=== PATIENT | male | born 1935 ===

== ENCOUNTER 2020-07-04 15:47 | Outpatient (REF) | payer MEDICAID, SELFPAY ==
[2020-07-04 18:39] LABS: Influenza A PCR NEGATIVE (Negative); Influenza B PCR NEGATIVE (Negative); Resp Syncy Virus RNA Qual PCR NEGATIVE (Negative); SARS COV2 PCR INHOUSE NEGATIVE (Negative)
== END 2020-07-04 15:48 | disposition home or self-care (01) ==
LOC: HO.LAB 15:47
PROVIDERS: Visit Provider Internal Medicine
DX: Z20.822 Contact with and (suspected) exposure to COVID-19 (principal)
CPT/HCPCS: 0241U; 36415

== ENCOUNTER 2021-03-02 12:08 | Outpatient (REF) | payer MEDICAID, SELFPAY ==
[2021-03-02 13:32] LABS: Influenza A PCR NEGATIVE (Negative); Influenza B PCR NEGATIVE (Negative); Resp Syncy Virus RNA Qual PCR NEGATIVE (Negative); SARS COV2 PCR INHOUSE NEGATIVE (Negative)
== END 2021-03-02 12:09 | disposition home or self-care (01) ==
LOC: HO.ED 12:08
PROVIDERS: Visit Provider Internal Medicine
DX: Z20.822 Contact with and (suspected) exposure to COVID-19 (principal)
CPT/HCPCS: 0241U; 36415

== ENCOUNTER 2023-06-27 17:12 | Emergency (ER) | payer MEDICAID, SELFPAY ==
--- NOTE | ~2023-06-27 | XR_ITS ---
EXAMINATION: XR HIP, LEFT CLINICAL INFORMATION: Left hip pain. COMPARISON: None available. TECHNIQUE: Two views of the left hip. FINDINGS: No fracture or subluxation. Eewe-my-qhjxpffz degenerative changes in the hips with joint space narrowing, subcortical sclerosis and spurring. Symmetric SI joints. Pelvic ring and pubic symphysis are maintained. Pelvic phleboliths. Moderate atherosclerotic disease. No significant soft tissue abnormality. XR/XR hip LT w PEL1V IMPRESSION: No acute fracture or malalignment. [id number]-vk-[id number] degenerative osteoarthritis of the hips.
--- NOTE | ~2023-06-27 | MR_ITS ---
EXAMINATION: MR KNEE WITHOUT CONTRAST, LEFT CLINICAL INFORMATION: Knee pain. Evaluate meniscus tear. COMPARISON: Radiographs of left knee from 06/27/2023. TECHNIQUE: MRI of the knee without contrast was performed using routine sequences on a high-field scanner. This is an emergency/stat examination. FINDINGS: MENISCI: Medial Meniscus: There is altered signal of mucoid degeneration in the posterior horn and complex tear of the posterior horn. Findings include an oblique tear of the inner third of the posterior horn. Also, a horizontal tear extends from eeiyr-ma-gewts third and contacts the inferior meniscal surface (images 16-19, series 4). There is complex appearance of the tear at the meniscal root. On the sagittal images, this has the appearance of a short segment longitudinal tear whereas on coronal images this is predominantly a radial pattern of tearing with high-grade disruption of fibers at the root attachment. The body of the medial meniscus is extruded by nearly 0.3 cm. The free edge of the meniscal body is slightly truncated. Lateral Meniscus: Intact. No evidence of tear, discoid meniscus or parameniscal cyst. LIGAMENTS: Cruciate: Anterior cruciate ligament is normal. There is mild signal heterogeneity from mucoid degeneration as well as very small interstitial tear in the posterior cruciate ligament. Collateral: At the medial knee, the tibial collateral ligament is intact. At the lateral knee, the iliotibial band, fibular collateral ligament, biceps femoris tendon and popliteus tendon are intact. EXTENSOR MECHANISM: Mild tendinopathy of the distal quadriceps. There is a small area of T2 signal hyperintensity, likely secondary to chronic tendon degeneration, in region of junction of the vastus lateralis component with the remainder of the quadriceps at upper pole of patella. Patellar tendon is normal. ARTICULAR CARTILAGE/BONE: Patellofemoral Compartment: Patella is properly positioned within the trochlear groove. There is moderate and high-grade chondral loss of the medial patellar facet and a deep oblique fissure is present in articular cartilage (along with small subchondral cyst) in region of median ridge. Minimal marginal osteophyte formation of the patella. Medial Compartment: Irregular thinning and deep fissuring of articular cartilage of the weightbearing and flexion zone of the medial femoral condyle and medial tibial plateau with subchondral bone marrow edema. A somewhat serpiginous and horizontal linear fracture line is seen within trabecular bone subjacent to the medial tibial plateau (for example, images 14-16, series 5; sagittal images 19-21, series 4). The bone marrow edema of the proximal tibia is worst around the region of the trabecular fracture. Also, areas of edema-like signal change are present in the medial femoral condyle around the subchondral cysts. Lateral Compartment: Unremarkable. JOINT FLUID AND BURSAE: Small joint effusion. No Lord's cyst. OTHER FINDINGS: There is soft tissue edema around the knee. Also, edema is seen within the popliteus muscle. Although this could be reactive to the tibia stress fracture, mild strain of the popliteus muscle is included in the differential. Mild edema also observed in the tibialis anterior muscle at its tibial attachment. MR/MR knee LT wo con IMPRESSION: * There is a complex tear of the posterior horn the medial meniscus including high-grade tearing through the meniscal root and associated extrusion of the meniscal body. * Irregular chondral loss with irregular thinning and fissuring of the articular cartilage of the femoral condyle and medial tibial plateau with subchondral marrow edema. Tibial bone marrow edema is predominantly observed around a stress fracture subjacent to the medial tibial plateau (not involving the articular surface of the plateau). * Small joint effusion. * Mild osteoarthritis of the patellofemoral joint. Findings include high-grade chondral loss and deep chondral fissure at the medial patellar facet. * Mild mucoid degeneration and apparent small interstitial tear of the posterior cruciate ligament.
--- NOTE | ~2023-06-27 | XR_ITS ---
EXAMINATION: XR KNEE, LEFT CLINICAL INFORMATION: Knee pain. COMPARISON: None available. TECHNIQUE: Four views of the left knee. FINDINGS: No fracture or subluxation. Mild joint space narrowing of the medial and patellofemoral compartments. No osseous erosions. Small joint effusion. Surgical clips projecting over the medial soft tissues of the knee. Moderate atherosclerotic disease. XR/XR knee LT 4V IMPRESSION: 1. No acute fracture or malalignment. 2. Mild degenerative osteoarthritis of the medial and patellofemoral compartments. 3. Small joint effusion.
--- NOTE | ~2023-06-27 | XR_ITS ---
EXAMINATION: XR LUMBOSACRAL SPINE CLINICAL INFORMATION: Low back pain. COMPARISON: None available. TECHNIQUE: Three views of the lumbosacral spine. FINDINGS: No evidence of acute compression deformity or subluxation. Severe intervertebral disc height loss at L5-S1. Large multilevel anterior osteophytes. Moderate facet arthropathy at L5-S1 with some degree of neural foraminal encroachment and central canal stenosis, suboptimally assessed by radiograph. Symmetric SI joints. No significant paraspinal soft tissue abnormality. XR/XR lumbar spine 2-3V IMPRESSION: 1. No acute compression deformity or malalignment. 2. Severe lumbar spondylosis at L5-S1. 3. Large multilevel anterior osteophytes.
[2023-06-27 18:05] VITALS: BP 179/88; PULSE 82; RESP 16; TEMP 36.6; O2SAT 99; BMI 25.1
--- NOTE | 2023-06-27 18:22 | ED.GENADULT ---
HPI - General Adult General Chief complaint: General Medical Stated complaint: left knee pain Time Seen by Provider: 06/27/23 17:24 Source: patient Mode of arrival: ambulatory Limitations: no limitations History of Present Illness HPI narrative: 87 yold male with pmh of DM, heart BYpass and chronic knee pain presents to the ED for worsening left knee pain. Patient states no recent trauma. Patient pain when bearing weight on knee. patient denies any redness, leg swelling, or calf pain. Patient also states low back pain with left hip pain. patient denies any recent long travel or recent surgery. Patient not able to walk due to knee pain. not able to bear weight. Related Data Home Medications Medication Instructions Recorded Confirmed aspirin 81 mg tablet,delayed 81 mg PO DAILY 07/02/23 release atorvastatin 10 mg tablet 10 mg PO DAILY 07/02/23 dorzolamide 22.3 mg-timolol 6.8 ophthalmic (eye) 07/02/23 mg/mL eye drops glipizide 10 mg tablet, extended 10 mg PO DAILY 07/02/23 release 24 hr insulin NPH isoph U-100 human 100 unit subcut 07/02/23 unit/mL subcutaneous suspension (Humulin N NPH U-100 Insulin (isophane susp)) isosorbide mononitrate 60 mg 60 mg PO BID 07/02/23 tablet,extended release 24 hr metoprolol tartrate 50 mg tablet 50 mg PO BID 07/02/23 pantoprazole 40 mg tablet,delayed 40 mg PO DAILY 07/02/23 release valsartan 80 mg tablet 80 mg PO DAILY 07/02/23 Allergies Allergy/AdvReac Type Severity Reaction Status Date / Time Sulfa (Sulfonamide Allergy Severe Anaphylaxis Verified 07/02/23 11:24 Antibiotics) Review of Systems Review of Systems: low back pain, hip, and left knee pain Yes all other systems are reviewed and are negative [facility] Past Medical History Surgical History (Updated 07/02/23 @ 11:29 by Dari Sawant MA) H/O heart bypass surgery (~2011) Social History Social History (Updated 07/02/23 @ 11:29 by Dari Sawant MA) Household Members: Family Housing: House Alcohol intake: never Patient Tobacco Use Status: Never used Tobacco Physical Exam ED Vital Signs: Vital Signs - 24 hr 06/27/23 18:05 Temperature 97.8 F Pulse Rate 82 Respiratory Rate 16 Blood Pressure 179/88 H Pulse Oximetry 99 Oxygen Delivery Method Room Air BMI result Body Mass Index 25.1 Const General: cooperative, healthy appearing, comfortable, no acute distress and well developed Orientation/consciousness: oriented to person, oriented to place, oriented to time and patient oriented x3 [facility] Head: Yes normal to inspection, Yes No palpable skull fracture present, Yes normocephalic and Yes atraumatic Eyes General: appearance normal, both eyes and all related structures Neck Neck: Yes normal visual inspection, Yes full ROM, Yes no lymphadenopathy, Yes no meningeal signs, Yes trachea midline, Yes supple, No anterior neck swelling and No tender Chest Chest palpation & inspection: normal inspection of the chest and normal palpation of entire chest wall Resp Effort & Inspection: normal respiratory effort and able to speak in complete sentences Auscultation: clear to auscultation bilaterally Cardio Jugular venous distension: no JVD Heart sounds: S1 normal heart sound present and S2 normal heart sound present GI Inspection: Yes normal to inspection Palpation (GI): Soft to palpation, not firm, nontender, no guarding and not rigid General: No CVA tenderness and No no CVA tenderness Back/Spine/Pelvis Back: No no CVA tenderness, No CVA tenderness and back tenderness (lumbar spine tenderness) Skin General skin exam: no rashes or lesions noted, elasticity normal and turgor normal Neuro General: oriented to person, oriented to place, oriented to time, patient oriented x3, gait normal, tone normal, moves all extremities, Normal light touch and pain sensation, no meningeal signs, no focal motor deficits, CN's II-XI intact bilaterally and normal sensation to monofilament Extrem General: Yes normal to inspection and Yes full ROM Upper/lower leg/hip images: 1. Tenderness on palpation. Negative for fracture. Complete range of motion of hip. Mom pulse intact. Motor/neuro/vascular exam intact Knee images: 1. Positive for lateral knee tenderness on palpation. Negative for crepitus, ecchymosis, erythema, or swelling. Patient has complete range of motion of knee. Popliteal pulses intact. Pedal pulses intact. Motor/neuro/vascular exam intact. Psych Appearance: grossly normal, well kempt and not disheveled Medical Decision Making Medical Decision Making MDM Narrative: 87-year-old male history of diabetes, cardiac bypass surgery presents to ED for worsening left knee pain. Patient has history of chronic knee pain but left knee pain is worse. Patient states also back pain and left hip pain. Patient states back pain radiating down leg. Negative for urinary bowel incontinence. X-rays ordered. 7:25pm: left knee shows arthritis with small joint effussion. negative for signs of sepsis. LEft hip and lumbar spine shows osteoarthritis. patient denies any urinary/bowel incontinence. Patient informed to conitnue taking tylenol, diclofenac cream, and will be placed on blas wrap. Not suspecting DVT, cellulitis, septic joint, gout, fracture, or dislocation. Creatinine 1.42 which is around baseline as per family. they were informed of creatine. Rest of labs are normal 2142: large Meniscus tear showed on MRI. Patient discharged into family care in wheel chair. THey will watch patient and bring PATIENT TO ORTHOPEDIC FOLLOW UP. PATIENT AND FAMILY MEMBERS WOULD LIKE TO GO HOME. Differential Diagnosis Differential Diagnoses: The differential diagnosis associated with the presentation includes (Fracture, dislocation, arthritis,) Admission/Observation Consideration of admission/observation: Escalation of care including admission/observation considered Lab Data 06/27/23 18:19 06/27/23 18:19 Labs: Lab Results 06/27/23 Range/Units 18:19 WBC 10.2 (4.8-10.8) X10*3/uL RBC 5.02 (4.60-5.80) X10*6/uL Hgb 14.0 (14.0-18.0) g/dl Hct 43.1 (42.0-52.0) % MCV 85.9 (80.0-98.0) fL MCH 27.9 (27.0-33.0) pg MCHC 32.5 (31.0-36.0) g/dl RDW 13.2 (11.0-16.0) % Plt Count 193 (160-400) X10*3/uL MPV 10.8 (9.4-12.4) fL Immature Gran % (Auto) 0.2 (0.0-0.4) % Neut % (Auto) 80.9 H (45-73) % Lymph % (Auto) 9.0 L (20-40) % Guthrie % (Auto) 7.6 (2-11) % Eos % (Auto) 1.9 (0-4) % Baso % (Auto) 0.4 (0-2) % Lymph # (Auto) 0.9 L (1.2-4.9) X10*3/uL Guthrie # (Auto) 0.8 (0.1-1.2) X10*3/uL Eos # (Auto) 0.2 (0.0-0.4) X10*3/uL Baso # (Auto) 0.0 (0.0-0.2) X10*3/uL Abs Immat Gran (auto) 0.02 (0.00-0.03) X10*3/uL Absolute Neuts (auto) 8.3 (2.0-8.3) x10*3/uL Absolute Nucleated RBC 0.000 (0.0-0.012) X10*3/uL Nucleated RBC % (auto) 0.0 (0.0-0.2) /100WBC Sodium 142 (135-145) mmol/L Potassium 4.8 (3.3-5.1) mmol/L Chloride 106 (96-108) mmol/L Carbon Dioxide 29 (22-29) mmol/L Anion Gap 12 (12-20) BUN 18 H (9-16) mg/dL Creatinine 1.42 H (0.5-1.4) mg/dL Estim Creat Clear Calc 33.6 Estimated GFR 47 Random Glucose 106 (60-115) mg/dL Estimat Average Glucose 209 mg/dL Hemoglobin A1c % 8.9 H (<6.0) % Calcium 9.6 (8.4-10.2) mg/dL Total Bilirubin 0.9 (0.0-1.0) mg/dL AST 16 (5-37) U/L ALT 17 (0-40) U/L Alkaline Phosphatase 78 (39-117) U/L Total Protein 7.3 (6.5-8.0) g/dL Albumin 4.2 (3.5-5.0) g/dL Prostate Specific Ag 0.61 (<0.05-4.0) ng/mL Independent Interpretation I performed an independent interpretation of an: Plain X-Ray Radiology Impression Discussion of test interpretation with radiology: I have reviewed the radiologist's reading. Independent Historian Clinical information obtained from an independent historian. History obtained from or confirmed by: Other (Daughter) External Record Review External record reviewed: Other Prescription Management I considered prescription management with: Pain Medication Discharge Plan Discharge Clinical Impression: Lumbar radiculopathy, Joint effusion, knee, Arthritis of knee, Arthritis, hip Patient Disposition: Home, Self-Care Instructions: Osteoarthritis (ED), Lumbar Radiculopathy (ED), Swollen Knee Joint (ED) Additional Instructions: X-ray of the knee shows arthritis with small joint effusion. X-ray of the hip shows osteoarthritis. Lumbar spine x-ray shows arthritis. Recommend follow-up with your primary care provider. Return to the ED immediately for any leg swelling, redness, calf pain, knee swelling, knee redness, bluish black discoloration, red streaks, chest pain, shortness of breath, pleurisy, urinary/bowel incontinence, severe back pain, hip pain, hematuria, dysuria, inability to walk, or any other concerning symptoms. Continue taking home meds Tylenol and diclofenac cream. Creatine is 1.42 and BUN 18. Rest of labs normal Prescriptions: No Action isosorbide mononitrate 60 mg tablet extended release 24 hr 60 mg PO BID atorvastatin 10 mg tablet 10 mg PO DAILY Humulin N NPH U-100 Insulin 100 unit/mL suspension subcut aspirin 81 mg tablet,delayed release (DR/EC) 81 mg PO DAILY dorzolamide-timolol 22.3-6.8 mg/mL drops ophthalmic (eye) metoprolol tartrate 50 mg tablet 50 mg PO BID pantoprazole 40 mg tablet,delayed release (DR/EC) 40 mg PO DAILY valsartan 80 mg tablet 80 mg PO DAILY glipizide 10 mg tablet extended release 24hr 10 mg PO DAILY Interventions: ED Discharge Assessment Last Done: 06/27/23 20:07 Discharge Date/Time: 06/27/23 20:08 Print Language: Filipino
[2023-06-27 18:26] LABS: MANUAL DIFF FLAG NO
[2023-06-27 18:28] LABS: Basophils Percent Auto 0.4 % (0-2); Eosinophils Absolute Auto 0.2 X10*3/uL (0.0-0.4); Eosinophils Percent Auto 1.9 % (0-4); Hematocrit 43.1 % (42.0-52.0); Imm Gran Abs Auto 0.02 X10*3/uL (0.00-0.03); Imm Gran Pct Auto 0.2 % (0.0-0.4); Lymphocytes Absolute Auto 0.9 X10*3/uL (1.2-4.9); Mean Corpuscular HGB Conc 32.5 g/dl (31.0-36.0); Mean Corpuscular Hemoglobin 27.9 pg (27.0-33.0); Mean Corpuscular Volume 85.9 fL (80.0-98.0); Mean Platelet Volume 10.8 fL (9.4-12.4); Monocytes Absolute Auto 0.8 X10*3/uL (0.1-1.2); Monocytes Percent Auto 7.6 % (2-11); Neutrophils Absolute Auto 8.3 x10*3/uL (2.0-8.3); Neutrophils Percent Auto 80.9 % (45-73); Platelet Count 193 X10*3/uL (160-400); Red Blood Count 5.02 X10*6/uL (4.60-5.80); Red Cell Distribution Width 13.2 % (11.0-16.0); White Blood Count 10.2 X10*3/uL (4.8-10.8)
[2023-06-27 18:42] LABS: Alanine Aminotransferase 17 U/L (0-40); Albumin Level 4.2 g/dL (3.5-5.0); Alkaline Phosphatase 78 U/L (39-117); Anion Gap 12 (12-20); Aspartate Amino Transferase 16 U/L (5-37); Bilirubin Total 0.9 mg/dL (0.0-1.0); Blood Urea Nitrogen 18 mg/dL (9-16); Calcium 9.6 mg/dL (8.4-10.2); Carbon Dioxide 29 mmol/L (22-29); Chloride 106 mmol/L (96-108); Creatinine Clr Calc Pharmacy 33.6; Estimated Glomerular Filt Rate 47; Glucose Random 106 mg/dL (60-115); Potassium 4.8 mmol/L (3.3-5.1); Sodium 142 mmol/L (135-145); Total Protein 7.3 g/dL (6.5-8.0)
[2023-06-27 19:03] LABS: Prostate Specific Antigen 0.61 ng/mL (<0.05-4.0)
[2023-06-28 07:32] LABS: Estimated Average Glucose 209 mg/dL; Hemoglobin A1c % 8.9 % (<6.0)
== END 2023-06-27 20:08 | disposition home or self-care (01) ==
LOC: HO.ED 20:05
PROVIDERS: Emergency Provider Internal Medicine; PCP Internal Medicine
DX: M54.16 Radiculopathy, lumbar region (principal); M25.462 Effusion, left knee; M17.12 Unilateral primary osteoarthritis, left knee; M16.12 Unilateral primary osteoarthritis, left hip; M23.222 Derangement of posterior horn of medial meniscus due to old tear or injury, left knee; E11.9 Type 2 diabetes mellitus without complications; Z79.82 Long term (current) use of aspirin; Z79.4 Long term (current) use of insulin; Z79.899 Other long term (current) drug therapy
CPT/HCPCS: 36415; 72100; 73502; 73564; 73721; 80053; 83036; 84153; 85025; 99283; 99284; 99285

== ENCOUNTER 2023-07-02 07:04 | Outpatient (REF) | payer MEDICAID, SELFPAY ==
--- NOTE | ~2023-07-02 | XR_ITS ---
EXAMINATION: XR BILATERAL KNEE STANDING XR KNEE, RIGHT XR KNEE, LEFT CLINICAL INFORMATION: Knee pain. COMPARISON: MRI and radiographs of the left knee June 27, 2023. TECHNIQUE: AP standing view of bilateral knees. [place] view of the left knee. Lateral views of bilateral knees. FINDINGS: The bones are diffusely demineralized. LEFT KNEE: Small joint effusion. Moderate narrowing of the medial and patellofemoral compartments of the left knee. Small tricompartmental osteophytes. Surgical clips along the medial aspect of the left knee. Atherosclerotic calcifications. RIGHT KNEE: Moderate narrowing of the medial and patellofemoral compartments. Small joint effusion. Atherosclerotic calcifications. Small tricompartmental osteophytes. XR/XR knee standing BI IMPRESSION: Moderate degenerative changes bilateral knees.
--- NOTE | ~2023-07-02 | XR_ITS ---
EXAMINATION: XR BILATERAL KNEE STANDING XR KNEE, RIGHT XR KNEE, LEFT CLINICAL INFORMATION: Knee pain. COMPARISON: MRI and radiographs of the left knee June 27, 2023. TECHNIQUE: AP standing view of bilateral knees. [place] view of the left knee. Lateral views of bilateral knees. FINDINGS: The bones are diffusely demineralized. LEFT KNEE: Small joint effusion. Moderate narrowing of the medial and patellofemoral compartments of the left knee. Small tricompartmental osteophytes. Surgical clips along the medial aspect of the left knee. Atherosclerotic calcifications. RIGHT KNEE: Moderate narrowing of the medial and patellofemoral compartments. Small joint effusion. Atherosclerotic calcifications. Small tricompartmental osteophytes. XR/XR knee RT 2V IMPRESSION: Moderate degenerative changes bilateral knees.
--- NOTE | ~2023-07-02 | XR_ITS ---
EXAMINATION: XR BILATERAL KNEE STANDING XR KNEE, RIGHT XR KNEE, LEFT CLINICAL INFORMATION: Knee pain. COMPARISON: MRI and radiographs of the left knee June 27, 2023. TECHNIQUE: AP standing view of bilateral knees. [place] view of the left knee. Lateral views of bilateral knees. FINDINGS: The bones are diffusely demineralized. LEFT KNEE: Small joint effusion. Moderate narrowing of the medial and patellofemoral compartments of the left knee. Small tricompartmental osteophytes. Surgical clips along the medial aspect of the left knee. Atherosclerotic calcifications. RIGHT KNEE: Moderate narrowing of the medial and patellofemoral compartments. Small joint effusion. Atherosclerotic calcifications. Small tricompartmental osteophytes. XR/XR knee LT 2V IMPRESSION: Moderate degenerative changes bilateral knees.
== END 2023-07-02 07:05 | disposition home or self-care (01) ==
LOC: HO.HOSX 07:04
PROVIDERS: Visit Provider Orthopaedic Surgery
DX: M17.12 Unilateral primary osteoarthritis, left knee (principal)
CPT/HCPCS: 20610; 73560; 73565; 99202; J0665; J1100

== ENCOUNTER 2023-07-02 11:09 | Outpatient (AMB) | payer MEDICAID, SELFPAY ==
--- NOTE | 2023-07-02 11:24 | MHC.OFFVIS ---
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 Pts son in law states that pt was in [place] 3 months ago and was walking up a stair and twisted his knee. Pt states within the last 2 weeks the pain has gotten a lot worse. Pt states he has never had surgery or a cortisone injection on his knee before. 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 He complains of pain in the lateral aspect of his knee with daily activity. His son-in-law states that in 04/2023 he was climbing a set of stairs when he twisted his knee. He says his pain has been present since, but worsened in the last 2 weeks. He also complains of pain in his left hip & lower back. He was seen in the ED on 06/27/23 for knee pain, and referred here. He denies any prior treatment for his knee. [facility] Surgical History (Updated 07/02/23 @ 11:29 by Dari Sawant MA) H/O heart bypass surgery (~2011) Social History (Updated 07/02/23 @ 11:29 by Dari Sawant MA) Household Members: Family Housing: House Alcohol intake: never Patient Tobacco Use Status: Never used Tobacco Review of Systems Const All systems reviewed & are unremarkable except as noted in HPI and below Physical Exam Const General: no acute distress, alert and awake Orientation/consciousness: patient oriented x3 HEENT Head: Yes normocephalic and Yes atraumatic Mouth: moist mucous membranes Eyes General: appearance normal, both eyes and all related structures EOM: EOMs intact bilaterally Chest Other: no audible wheezing. Resp Other: No audible wheezing Effort & Inspection: normal respiratory effort and able to speak in complete sentences Cardio Other: Radial pulse palpable with no rythmic abnormalities Jugular venous distension: no JVD Back/Spine/Pelvis Cervical Spine: normal cervical lordosis Skin General skin exam: turgor normal Rashes: no rashes Neuro General: patient oriented x3 Extrem Other: Mild effusion TTP medial compartment 5-125 deg motion Varus alignement Varus thrust with gfait Psych Appearance: grossly normal Mental Status: mental status grossly normal Speech and movement: Normal speech and movement present Affect: normal affect Attitude: cooperative Office Procedures Joint Injection/Drain Joint Injection/Drain Details: Injected 1 mL of Decadron and 3 mL 1% lidocaine and 3 mL of 0.25% Marcaine. Site was prepped using aseptic technique. Patient tolerated the procedure well. Primary Site: left knee Approach Used: anterolateral Coding - Large joint Procedure code (CPT) selection complete Results Reviewed Results Reviewed: I personally reviewed relevant radiographs. Left knee varus pattern moderate OA bilaterally I personally reviewed the MR images. There is a complex tear of the posterior horn the medial meniscus including high-grade tearing through the meniscal root and associated extrusion of the meniscal body. * Irregular chondral loss with irregular thinning and fissuring of the articular cartilage of the femoral condyle and medial tibial plateau with subchondral marrow edema. Tibial bone marrow edema is predominantly observed around a stress fracture subjacent to the medial tibial plateau (not involving the articular surface of the plateau). * Small joint effusion. * Mild osteoarthritis of the patellofemoral joint. Findings include high-grade chondral loss and deep chondral fissure at the medial patellar facet. * Mild mucoid degeneration and apparent small interstitial tear of the posterior cruciate ligament. Assessment & Plan Assessment & Plan (1) Arthritis of left knee: Code(s): M17.12 - Unilateral primary osteoarthritis, left knee Plan: This is an 87 yo M with a stress reaction and a degenerative meniscus tear with varus thrust on gait and pain. He is not a surgical candidate and I injected his left knee. He is taking low dose NSAID and using a diclofenac cream. I recommend he continue to use a cane and ambulation as tolerated. Plan Prepared for Ramses Love MD by Moe Shields, medical donation professional, on 07/02/23 at 11:30 AM, EST. Orders: Orders XR knee RT 2V 07/02/23 M25.569 - Pain in unspecified knee XR knee LT 2V 07/02/23 M25.569 - Pain in unspecified knee XR knee standing BI 07/02/23 M25.569 - Pain in unspecified knee Coding Level of Care Code New Pt Level 3 (70315) Diagnoses Arthritis of left knee M17.12 CPT Codes Coding - Large joint: 78165 - Large joint ([id number])
== END 2023-07-02 11:47 | disposition home or self-care (01) ==
PROVIDERS: PCP Internal Medicine; Visit Provider Orthopaedic Surgery
DX: M17.12 Unilateral primary osteoarthritis, left knee (principal)
CPT/HCPCS: 20610; 99203

== ENCOUNTER 2024-01-24 13:43 | Outpatient (AMB) | payer MEDICAID, SELFPAY ==
--- NOTE | 2024-01-24 14:30 | A.OFFVIS_ITS ---
Vital Signs 01/24/24 14:53 Height 5 ft 7 in Weight 160 lb BMI 25.1 Intake Visit Reasons: OV - Left Knee Varus OA 07/02/23 Intake Note: Airam is an 88 year old male who presents today for a follow up of his left knee varus pattern OA. His left knee was last injected on 07/02/23 . Patient reports that he had about 5 months of relief. Would like to repeat injection t lulu. Allergies Sulfa (Sulfonamide Antibiotics) Allergy (Severe, Verified 07/02/23 11:24) Anaphylaxis HPI HPI OV - Left Knee Varus OA 07/02/23: Details: Airam is an 88 year old male who presents today for a follow up of his left knee varus pattern OA. His left knee was last injected on 07/02/23 . Patient reports that he had about 5 months of relief. Would like to repeat injection today. REPLACED BY [facility] Surgical History (Updated 07/02/23 @ 11:29 by Dari Sawant CMA) H/O heart bypass surgery (~2011) Social History (Updated 07/02/23 @ 11:29 by Dari Sawant CMA) Household Members: Family Housing: House Alcohol intake: never Patient Tobacco Use Status: Never used Tobacco Physical Exam Vital Signs: BMI result Body Mass Index 25.1 Const General: no acute distress, alert and awake Orientation/consciousness: patient oriented x3 HEENT Head: Yes normocephalic and Yes atraumatic Mouth: moist mucous membranes Eyes General: appearance normal, both eyes and all related structures EOM: EOMs intact bilaterally Chest Other: no audible wheezing. Resp Other: No audible wheezing Effort & Inspection: normal respiratory effort and able to speak in complete sentences Cardio Other: Radial pulse palpable with no rythmic abnormalities Jugular venous distension: no JVD Back/Spine/Pelvis Cervical Spine: normal cervical lordosis Skin General skin exam: turgor normal Rashes: no rashes Neuro General: patient oriented x3 Extrem Other: Mild effusion TTP medial compartment 5-125 deg motion Varus alignement Varus thrust with gfait Psych Appearance: grossly normal Mental Status: mental status grossly normal Speech and movement: Normal speech and movement present Affect: normal affect Attitude: cooperative Office Procedures Joint Injection/Aspiration Joint Injection/Aspiration Details: Injected 1 mL of Decadron and 3 mL 1% lidocaine and 3 mL of 0.25% Marcaine. Site was prepped using aseptic technique. Patient tolerated the procedure well. Primary Site: left knee Approach Used: anterolateral Coding - Large joint Procedure code (CPT) selection complete Assessment & Plan Assessment & Plan (1) Arthritis of left knee: Code(s): M17.12 - Unilateral primary osteoarthritis, left knee Category: Medical Plan: This is an 87 yo M with a stress reaction and a degenerative meniscus tear with varus thrust on gait and pain. He is not a surgical candidate and I injected his left knee. He is taking low dose NSAID and using a diclofenac cream. I recommend he continue to use a cane and ambulation as tolerated. Coding Level of Care Code Est Pt Level 3 (79295) Diagnoses Arthritis of left knee M17.12 CPT Codes Coding - Large joint: 14105 - Large joint ([id number])
[2024-01-24 14:53] VITALS: BMI 25.1
== END 2024-01-24 15:46 | disposition home or self-care (01) ==
PROVIDERS: PCP Internal Medicine; Visit Provider Orthopaedic Surgery
DX: M17.12 Unilateral primary osteoarthritis, left knee (principal)
CPT/HCPCS: 20610; 99213

== ENCOUNTER → 2024-01-24 13:43 | Outpatient (BNVA) | payer MEDICAID, SELFPAY | PROVIDERS: PCP Internal Medicine; Visit Provider Orthopaedic Surgery | DX: M17.12 Unilateral primary osteoarthritis, left knee (principal) | CPT/HCPCS: 20610; 99212; J0665; J1100 ==

== ENCOUNTER 2024-08-08 11:58 | Outpatient (AMB) | payer MEDICAID, SELFPAY ==
--- NOTE | 2024-08-08 12:00 | A.OFFVIS_ITS ---
Vital Signs 08/08/24 12:01 Height 5 ft 7 in Intake Visit Reasons: Inj- Left Knee cortisone inj.-last 01/24/24 Intake Note: Airam is a 88 year old male who presents today for a repeat Left knee Cortisone injection 01/24/24 Allergies Sulfa (Sulfonamide Antibiotics) Allergy (Severe, Verified 08/08/24 12:01) Anaphylaxis HPI HPI Inj- Left Knee cortisone inj.-last 01/24/24: Details: 88-year-old gentleman here for left knee osteoarthritis. He has benefitted from injections in the past and would like to repeat injections today. [facility] Surgical History H/O heart bypass surgery (~2011) Social History Household Members: Family Housing: House Alcohol intake: never Patient Tobacco Use Status: Never used Tobacco Physical Exam Const General: no acute distress, alert and awake Orientation/consciousness: patient oriented x3 HEENT Head: Yes normocephalic and Yes atraumatic Mouth: moist mucous membranes Eyes General: appearance normal, both eyes and all related structures EOM: EOMs intact bilaterally Chest Other: no audible wheezing. Resp Other: No audible wheezing Effort & Inspection: normal respiratory effort and able to speak in complete sentences Cardio Other: Radial pulse palpable with no rythmic abnormalities Jugular venous distension: no JVD Back/Spine/Pelvis Cervical Spine: normal cervical lordosis Skin General skin exam: turgor normal Rashes: no rashes Neuro General: patient oriented x3 Extrem Other: Mild effusion TTP medial compartment 5-125 deg motion Varus alignement Varus thrust with gfait Psych Appearance: grossly normal Mental Status: mental status grossly normal Speech and movement: Normal speech and movement present Affect: normal affect Attitude: cooperative Office Procedures Joint Inj/Aspir; Non-Pain Clin Joint Injection/Drain Details: Injected 1 mL of Decadron and 3 mL 1% lidocaine and 3 mL of 0.25% Marcaine. Site was prepped using aseptic technique. Patient tolerated the procedure well. Shoulders, Hips, Knees, Knee Large Joint Injection : Left Knee Coding Procedure code (CPT) selection complete Assessment & Plan Assessment & Plan (1) Arthritis of left knee: Code(s): M17.12 - Unilateral primary osteoarthritis, left knee Category: Medical Plan: In an year old gentleman with left knee osteoarthritis. Not a surgical candidate. I injected his knee today. If this is not helpful we will consider viscosupplementation. Coding Level of Care Code Est Pt Level 3 (58546) Diagnoses Arthritis of left knee M17.12 CPT Codes Shoulders, Hips, Knees, - Knee Large Joint Injection : Left Knee ([id number])
--- OUTSIDE RECORDS SUMMARY | 2024-08-08 13:59 | XMS_ITS | Clinical Summary ---
Author Organization [facility] Address [address] [place] [address] Care Team Providers Care Tester Regulator Name Role Phone Minh Shabazz MD Primary Care Provider +1 [phone] Allergies Active Allergy Reactions Criticality Noted Date Comments Penicillins Rash Low 11/11/2013 Sulfa Antibiotics Rash Low 11/11/2013 Medications Medication Sig Dispensed Refills Start Date End Date Status insulin regular (HUMULIN,NOVOLIN) 100 UNIT/ML injection Inject 20 Units under the skin every morning with breakfast. 0 Active isosorbide mononitrate (IMDUR) 60 MG 24 hr tablet Take 1 tablet (60 mg total) by mouth every evening after dinner. 0 Active metoprolol (LOPRESSOR) 50 MG tablet Take 1 tablet (50 mg total) by mouth 2 (two) times a day. 0 Active aspirin 81 MG chewable tablet Chew 1 tablet (81 mg total) by mouth daily. 0 Active pantoprazole (PROTONIX) 40 MG tablet Take 1 tablet (40 mg total) by mouth every evening after dinner. 0 Active atorvastatin (LIPITOR) 10 MG tablet Take 1 tablet (10 mg total) by mouth every evening. 0 Active insulin NPH (HumuLIN N,NovoLIN N) injection 100 units/mL Inject 30 Units under the skin every morning before breakfast. 0 Active valsartan (DIOVAN) tablet 80 mg Take 1 tablet (80 mg total) by mouth daily. 0 Active glipiZIDE (GLUCOTROL XL) ER 24 hr tablet 5 mg Take 2 tablets (10 mg total) by mouth daily. 0 Active Ventolin HFA 108 (90 Base) MCG/ACT inhaler INHALE 2 PUFFS EVERY 4 TO 6 HOURS NEEDED 0 11/28/2022 Active dorzolamide-timolol (COSOPT) 22.3-6.8 MG/ML ophthalmic solution Place 1 drop into both eyes 2 (two) times a day. 0 12/04/2022 Active [id number], OTIC, (CORTISPORIN) 1 % SOLN otic solution INSTILL 5 DROPS TWICE A DAY IN THE LEFT EAR 0 12/21/2022 Active moxifloxacin (VIGAMOX) 0.5 % ophthalmic solution INSTILL 2 DROPS IN BOTH EYES TWICE A DAY 0 12/21/2022 Active BD Veo Insulin Syringe U/F 31G X 15/64 0.5 ML MISC USE DIRECTED 0 12/04/2022 Active Insulin Syringe-Needle U-100 (BD Insulin Syringe Ultrafine) 31G X 5/16 0.5 ML MISC 0 06/30/2022 Activ e BD Insulin Syringe U/F 31G X 5/16 0.5 ML MISC 0 09/22/2022 Active nitroglycerin (NITROSTAT) 0.4 MG SL tablet USE DIRECTED FOR CHEST PAIN NEEDED 0 07/05/2022 Active Active Problems Problem Noted Date Diagnosed Date Coronary artery disease invo lving iliamna coronary artery of iliamna heart without angina pectoris 09/29/2016 S/P CABG x 3 09/29/2016 Angina pectoris 11/04/2015 Hyperlipidemia 11/04/2015 Essential hypertension, benign 11/04/2015 AMADOR (dyspnea on exertion) 11/04/2015 CKD (chronic kidney disease) 11/04/2015 Family History Medical History Relation Name Comments Cancer Father Relation Name Status Comments Father Mother Social History Tobacco Use Types Packs/Day Years Used Date Smoking Tobacco: Former Cigarettes 2 10 Q uit: 05/07/1973 Smokeless Tobacco: Never Tobacco Cessation:Counseling Given: Not Answered Alcohol Use Standard Drinks/Week Comments No 0 (1 standard drink = 0.6 oz pur e alcohol) Sex and Gender Information Value Date Recorded Sex Assigned at Not on file Gender Identity Not on file Sexual Orientation Not on file Job Start Date Occupation Industry Not on file Not on file Not on file Last Filed Vital Signs Vital Sign Reading Time Taken Comments Blood Pressure 102/56 12/29/2022 10:42 AM EDT Pulse 86 12/29/2022 10:42 AM EDT Temperature 36.7 ??C (98 ??F) 06/30/2022 11:28 AM EST Respiratory Rate 16 06/21/2018 8:32 AM EST Oxygen Saturation 99% 12/29/2022 10:42 AM EDT Inhaled Oxygen Concentration - - Weight 76.2 kg (168 lb) 12/29/2022 10:42 AM EDT Height 172.7 cm (5' 8 ) 12/29/2022 10:42 AM EDT Body Mass Index 25.54 12/29/2022 10:42 AM EDT Plan of Treatment Health Maintenance Due Date Last Done Comments Depression Screening 1947 Preventative Health Evaluation 1952 DTap / Tdap / Td (1 - Tdap) 1953 Shingrix-Zoster Vaccine (1 of 2) 1984 Fall Risk Assessment 11/10/1999 Pneumococcal Vaccine (1 of 1 - PCV) 11/10/1999 RSV Adult > 60+ Yrs or (1 - 1-dose 75+ series) 2009 COVID-19 Vaccine ( season) 2024 09/15/2021, 02/03/2021, 06/18/2020, Additional history exists Influenza Vaccine (#1) 2024 02/25/2021 Hepatitis B Vaccines Aged Out No long er eligible based on patient's age to complete this topic RSV Ped < 20 months Aged Out No longe r eligible based on patient's age to complete this topic Advance Directives For more information, please contact: [phone] Latest Code Status on File Code Status Date Activated Date Inactivated Comments Full Code 06/21/2018 9:57 AM 06/21/2018 7:10 PM This code status was ascertained in the following way: discussion with patient . Code Status History Code Status Date Activated Date Inactivated Comments Full Code 11/18/2015 10:49 AM 11/19/2015 4:07 AM This code status was ascertained in the following way: per unit protocol. Full Code 11/18/2015 8:48 AM 11/18/2015 10:49 AM This code status was ascertained in the following way: discussion with primary senior quality control technician / family Full Code 01/07/2014 12:05 PM 01/07/2014 11:37 PM This code status was ascertained in the following way: per unit protocol. Care Teams Tester Regulator Relationship Specialty Start Date End Date Minh Shabazz MD [address] [place] [address] PCP - General Internal Medicine 05/29/17
--- OUTSIDE RECORDS SUMMARY | 2024-08-08 13:59 | XMS_ITS | Clinical Summary ---
Author Organization [facility] Address [address] [place] [address] Care Team Providers Care Release Of Information Specialist Name Role Phone Pcp, No MD Primary Care Provider Unavailabl e Allergies Active Allergy Reactions Criticality Noted Date Comments Penicillins Rash Low 11/11/2013 Other reaction(s): Hives,itiching Sulfa (Sulfonamide Antibiotics) 01/14/2014 Other reaction(s): itching,hives Medications atorvastatin (LIPITOR) 10 mg tablet Take 10 mg by mouth nightly. 2 Active aspirin 81 mg chewable tablet Take 81 mg by mouth. Active valsartan (DIOVAN) 80 mg tablet Take 80 mg by mouth. 3 Active Travatan Z 0.004 % drops PUT 1 DROP INTO BOTH EYES AT BEDTIME 3 Active tamsulosin (FLOMAX) capsule Take 0.4 mg by mouth. 3 Active BD Insulin Syringe Ultra-Fine 0.5 mL 31 gauge x 5/16 syringe 3 Active pantoprazole (PROTONIX) 40 mg EC tablet Take 40 mg by mouth. 2 Active nitroglycerin (NITROSTAT) 0.4 mg SL tablet USE DIRECTED FOR CHEST PAIN NEEDED 3 Active metoprolol tartrate (LOPRESSOR) 50 mg tablet Take 50 mg by mouth. Active isosorbide mononitrate (IMDUR) 60 mg 24 hr tablet Take 60 mg by mouth. 3 Active insulin regular (HumuLIN) 100 unit/mL injection Inject 20 Units under the skin. 4 Active insulin NPH (HumuLIN) 100 unit/mL injection Inject 30 Units under the skin. 4 Active glipiZIDE (GLUCOTROL) 5 mg 24 hr tablet Take 10 mg by mouth. Active triamcinolone (KENALOG) 0.1 % ointmentIndicati ons:Rash and nonspecific skin eruption Apply to the red spots twice a day for two weeks, and then as needed 453.6 g 3 3 Active Active Problems No known active problems Social History Tobacco Use Types Packs/Day Years Used Date Smoking Tobacco: Never Smokeless Tobacco: Never Tobacco Cessation:Counseling Given: Not Answered Sex and Gender Information Value Date Recorded Sex Assigned at Not on file Legal Sex Male 11:40 AM EST Gender Identity Not on file Sexual Orientation Not on file Plan of Treatment Health Maintenance Due Date Last Done Comments Diabetes: Urine Microalbumin 1934 HIV Screening 1935 DTaP,Tdap,and Td Vaccines (1 - Tdap) 1952 Diabetes: Retinopathy Screening 1952 Pneumococcal Vaccine, 50+ Years (1 of 1 - PCV) 1984 Zoster Vaccines (1 of 2) 1984 Diabetes: Hemoglobin A1C 02/01/2023 08/01/2022 COVID-19 Vaccine ( season) 2024 09/15/2021, 02/03/2021, 06/18/2020, Additional history exists Influenza Vaccine (Season Ended) 2025 02/25/2021 HPV Vaccines Aged Out No longer eligi ble based on patient's age to complete this topic Hepatitis A Vaccines Aged Out No long er eligible based on patient's age to complete this topic Meningococcal Vaccine Aged Out No swati karen eligible based on patient's age to complete this topic Insurance Care Teams Release Of Information Specialist Relationship Specialty Start Date End Date Ana Rodriguez MD [address] [place] [address] PCP - General 07/04/17
--- OUTSIDE RECORDS SUMMARY | 2024-08-08 13:59 | XMS_ITS | Clinical Summary ---
Author Organization [facility] Address [address] [place] [address] Care Team Providers Care Nurse Gynecology Name Role Phone Minh Shabazz MD Primary Care Provider [phone] [phone] Immunizations Name Administration Dates Next Due Pfizer (ages 12 & older) JESUS S-CoV-2 COVID-19, mRNA, LNP-S, bradford-sucrose, preservative free 09/15/2021 Pfizer SARS-CoV-2 COVID-19, mRNA, LNP-S, preservative free 02/03/2021,06/18/2020,05/28/2020 Surgical History Surgery Date Site/Laterality Comments HERNIA REPAIR PROCEDURE:HERNIA REPAIR CATARACT EXTRACTION W/ INTRAOCULAR LENS IMPLANT PROCEDURE:CATARACT EXTRACTION W/ INTRAOCULAR LENS IMPLANT OTHER SURGICAL HISTORY PROCEDURE:lasar surgery to eyes CORONARY ARTERY BYPASS GRAFT PROCEDURE:CORONARY ARTERY BYPASS GRAFT ELBOW SURGERY Left PROCEDURE:ELBOW SURGERY CARDIAC CATHETERIZATION 06/21/2018 N/A PROCEDURE:CARDIAC CATHETERIZATION;COMMENT:Proce dure: LEFT HEART CATHETERIZATION ? PTCA / CORONARY / FEMORAL / ALLERGIES - PENICILLINS,SULFA ANTIBIOTICS; Surgeon: Bakari Conroy DO; Location: [facility]; Service: Cardiology; Laterality: N/A; CARDIAC CATHETERIZATION 11/18/2015 N/A PROCEDURE:CARDIAC CATHETERIZATION;COMMENT:Proce dure: LEFT HEART CATHETERIZATION ? PTCA , CORONARY ANGIO/ GRAFT ANGIO/ FEMORAL; Surgeon: Taj Zambrano MD; Location: [facility]; Service: Cardiology; Laterality: N/A; CARDIAC CATHETERIZATION 01/07/2014 N/A PROCEDURE:CARDIAC CATHETERIZATION;COMMENT:Proce dure: LEFT HEART CATHETERIZATION; Surgeon: Taj Zambrano MD; Location: [facility]; Service: Cardiology; Laterality: N/A; Medical History Medical History Date Comments Angina pectoris DX:Angina pector is (HCC) Hyperlipidemia DX:Hyperlipidemi a Hypertension DX:Hypertension Coronary artery disease DX:Coron bethany artery disease GERD (gastroesophageal reflux disease) DX:GERD (gastroesophageal reflux disease) Cataract DX:Cataract Diabetes mellitus type II, c ontrolled ([facility]) DX:Diabetes mellitus type II , controlled ([facility]) HL (hearing loss) DX:HL (hearing loss);COMMENT:patient has hearing aids but currently does not wear them Eczema DX:Eczema Family History Medical History Relation Name Comments Cancer Father Relation Name Status Comments Father Mother Social History Tobacco Use Types Packs/Day Years Used Date Smoking Tobacco: Former Cigarettes Q uit: 05/07/1973 Smokeless Tobacco: Never Alcohol Use Standard Drinks/Week Comments No 0 (1 standard drink = 0.6 oz pur e alcohol) Sex and Gender Information Value Date Recorded Sex Assigned at Not on file Legal Sex Male 1:32 AM EST Gender Identity Not on file Sexual Orientation Not on file Obstetrics History Last Filed Vital Signs Vital Sign Reading Time Taken Comments Blood Pressure 102/56 12/29/2022 10:42 AM EDT Pulse 86 12/29/2022 10:42 AM EDT Temperature - - Respiratory Rate - - Oxygen Saturation - - Inhaled Oxygen Concentration - - Weight 76.2 kg (168 lb) 12/29/2022 10:42 AM EDT Height 172.7 cm (5' 8 ) 12/29/2022 10:42 AM EDT Body Mass Index 25.54 12/29/2022 10:42 AM EDT Plan of Treatment Health Maintenance Due Date Last Done Comments DTaP,Tdap,and Td Vaccines (1 - Tdap) 1954 Pneumococcal Vaccine: 50+ Years (1 of 1 - PCV) 1984 Zoster Vaccines (1 of 2) 1984 RSV Immunization Adult Patients (1 - 1-dose 75+ series) 2009 Depression Screening 04/14/2022 Falls Risk Assessment 04/14/2022 Social Influencers of Health Screening 04/14/2022 Hypertension/CHF/CAD Annual BMP Blood Test 08/02/2023 08/01/2022, 06/19/2018, 10/23/2017 COVID-19 Vaccine ( season) 2024 09/15/2021, 02/03/2021, 06/18/2020, Additional history exists Influenza Vaccine (#1) 2024 Cholesterol Screening (Lipid Panel) 08/02/2027 08/01/2022, 10/23/2017 HIB Vaccines Aged Out No longer eligi ble based on patient's age to complete this topic HPV Vaccines Aged Out No longer eligi ble based on patient's age to complete this topic Hepatitis A Vaccines Aged Out No long er eligible based on patient's age to complete this topic Hepatitis B Vaccines Aged Out No long er eligible based on patient's age to complete this topic IPV Vaccines Aged Out No longer eligi ble based on patient's age to complete this topic MMR Vaccines Aged Out No longer eligi ble based on patient's age to complete this topic Meningococcal ACWY Vaccine Aged Out N o longer eligible based on patient's age to complete this topic Meningococcal B Vacine Aged Out No lo nger eligible based on patient's age to complete this topic RSV Immunization Patients Under 20 months Aged Out No longer eligible based on patient's age to complete this topic Varicella Vaccines Aged Out No longer eligible based on patient's age to complete this topic Care Teams Nurse Gynecology Relationship Specialty Start Date End Date Minh Shabazz MD PCP - General Internal Medicine 05/29/17
== END 2024-08-08 12:24 | disposition home or self-care (01) ==
LOC: HO.HOS 11:59
PROVIDERS: PCP Internal Medicine; Visit Provider Orthopaedic Surgery
DX: M17.12 Unilateral primary osteoarthritis, left knee (principal)
CPT/HCPCS: 20610; 99213

== ENCOUNTER → 2024-08-08 11:58 | Outpatient (BNVA) | payer MEDICAID, SELFPAY | PROVIDERS: PCP Internal Medicine; Visit Provider Orthopaedic Surgery | DX: M17.12 Unilateral primary osteoarthritis, left knee (principal) | CPT/HCPCS: 20610; 99212; J0665; J1100; J2003 ==

== ENCOUNTER 2024-09-04 08:36 | Outpatient (AMB) | payer MEDICAID, SELFPAY ==
--- NOTE | 2024-09-04 08:41 | A.OFFVIS_ITS ---
Intake Visit Reasons: INJ Left Knee Durolane injection Intake Note: Airam is an 88 year old male who presents today for a Left knee Durolane Injection Allergies Sulfa (Sulfonamide Antibiotics) Allergy (Severe, Verified 09/04/24 08:41) Anaphylaxis HPI HPI INJ Left Knee Durolane injection: Details: Here for left knee Durolane. No complaints. [facility] Surgical History H/O heart bypass surgery (~2011) Social History Household Members: Family Housing: House Alcohol intake: never Patient Tobacco Use Status: Never used Tobacco Physical Exam Extrem Other: skin c/d/i Office Procedures Joint Inj/Aspir; Non-Pain Clin Joint Injection/Drain Details: Injected Durolane. Site was prepped using aseptic technique. Patient tolerated the procedure well. Shoulders, Hips, Knees, Knee Large Joint Injection : Left Knee Coding Procedure code (CPT) selection complete Assessment & Plan Assessment & Plan (1) Arthritis of left knee: Code(s): M17.12 - Unilateral primary osteoarthritis, left knee Category: Medical Plan: Durolane left knee. F/u prn. Coding Level of Care Code Est Pt Level 2 (25485) Diagnoses Arthritis of left knee M17.12 CPT Codes Shoulders, Hips, Knees, - Knee Large Joint Injection : Left Knee ([id number])
--- OUTSIDE RECORDS SUMMARY | 2024-09-04 08:52 | XMS_ITS | Clinical Summary ---
Author Organization [facility] Address [address] [place] [address] Care Team Providers Care Sales Operations Coordinator Name Role Phone Minh Shabazz MD Primary Care Provider [phone] [phone] Allergies Active Allergy Reactions Criticality Noted Date [...] (two) times a day. 0 12/04/2022 Active [id number], OTIC, (CORTISPORIN) 1 % SOLN otic solution [...] Diagnosed Date Coronary artery disease invo lving nenana coronary artery of nenana heart without angina pectoris 09/29/2016 S/P CABG [...] Advance Directives For more information, please contact: [phone] Latest Code Status on File Code Status [...] in the following way: discussion with primary carbon setter / family Full Code 01/07/2014 12:05 PM 01/07/2014 11:37 PM This code status was ascertained in the following way: per unit protocol. Care Teams Sales Operations Coordinator Relationship Specialty Start Date End Date Minh Shabazz MD [address] [place] [address] PCP - General Internal Medicine 05/29/17
--- OUTSIDE RECORDS SUMMARY | 2024-09-04 08:52 | XMS_ITS | Clinical Summary ---
Author Organization [facility] Address [address] [place] [address] Care Team Providers Care Home Health Lpn Name Role Phone Unavailable Primary Care Provider Unavailabl e Immunizations Immunization Administration Dates Next Due Covid-19 MRNA Vaccine - Pfizer 12+ (Purple Cap) 06/18/2020,05/28/2020 Social History Tobacco Use Types Packs/Day Years Used Date Smoking Tobacco: Never Assessed Sex and Gender Information Value Date Recorded Sex Assigned at Not on file Legal Sex Male 2:40 PM EDT Gender Identity Male 05/23/2020 12:36 PM EST Sexual Orientation Asexual 05/23/2020 12 :36 PM EST Plan of Treatment Health Maintenance Due Date Last Done Comments DTaP/Tdap/Td Vaccines (1 - Tdap) 1954 Pneumococcal Vaccines 50+ (1 of 1 - PCV) 1984 Zoster (Shingles) Vaccine (1 of 2) 1984 RSV Vaccine 60 years and older and Patients (1 - 1-dose 75+ series) 2009 Influenza Vaccine 12/06/2023 COVID-19 Vaccine ( season) 2024 09/15/2021, 02/03/2021, 06/18/2020, Additional history exists Hepatitis B Vaccines Aged Out No long er eligible based on patient's age to complete this topic Insurance [facility]
--- OUTSIDE RECORDS SUMMARY | 2024-09-04 08:52 | XMS_ITS | Clinical Summary ---
Author Organization [facility] Address [address] [place] [address] Care Team Providers Care Boom Operator Name Role Phone Pcp, No MD Primary [...] to complete this topic Insurance Care Teams Boom Operator Relationship Specialty Start Date End Date Ana Rodriguez MD [address] [place] [address] PCP - General 07/04/17
--- OUTSIDE RECORDS SUMMARY | 2024-09-04 08:52 | XMS_ITS ---
Author Name [facility] Organization Unknown History of Medication Use Medication Directions Dispensed Refills Start Date End Date Stat tacrolimus (PROTOPIC) 0.1 % ointment Apply topically 2 (two) times a day. 08/02/2022 08/03/2023 active triamcinolone (KENALOG) 0.1 % ointment Apply to the red spots twice a day for two weeks, and then as needed 08/02/2022 active nitroglycerin (NITROSTAT) 0.4 mg SL tablet USE DIRECTED FOR CHEST PAIN NEEDED 07/05/2022 active valsartan (DIOVAN) 80 mg tablet Take 80 mg by mouth. 07/05/2022 active BD Insulin Syringe Ultra-Fine 0.5 mL 31 gauge x 5/16 syringe 06/30/2022 act alexis isosorbide mononitrate (IMDUR) 60 mg 24 hr tablet Take 60 mg by mouth. 06/06/2022 active pantoprazole (PROTONIX) 40 mg EC tablet Take 40 mg by mouth. 04/30/2022 active insulin NPH (HumuLIN) 100 unit/mL injection Inject 30 Units under the skin. 01/28/2014 active insulin regular (HumuLIN) 100 unit/mL injection Inject 20 Units under the skin. 01/28/2014 active aspirin 81 mg chewable tablet Take 81 mg by mouth. active Problems Problem Status Onset Date Problem Type Date of Resoluti on Source Lichen planus pigmentosus active EncounterDiagnosisAct [facility]UCHS Encounters Encounter Type Encounter Reason Primary Diagnosis Location Date Ambulatory Rash Rash [facility] 02/07/2023 Ambulatory Rash and other n onspecific skin eruption [facility] 08/02/2022 Care Team Organization Name Specialty Phone Email Start Date End [facility] [place] [facility] 09/04/2023 [facility] NO PCP Primary Care 08/02/2022 [facility] PCP,No Primary Care 08/02/2022 [facility] SEAN BLANCHARD Primary Care 03/11/2022 12/24/2023 [facility] 03/08/2022
--- OUTSIDE RECORDS SUMMARY | 2024-09-04 08:53 | XMS_ITS | Clinical Summary ---
Author Organization [facility] ity Address [address] [place] [address] Care Team Providers [facility] Worker Name Role Phone Minh Shabazz MD Primary Care Provider [phone] Immunizations Name Administration Dates Next Due Pfizer [...] PENICILLINS,SULFA ANTIBIOTICS; Surgeon: Bakari Conroy DO; Location: [facility]; Service: Cardiology; Laterality: N/A; CARDIAC CATHETERIZATION 11/18/2015 N/A PROCEDURE:CARDIAC CATHETERIZATION;COMMENT:Proce dure: LEFT HEART CATHETERIZATION ? PTCA , CORONARY ANGIO/ GRAFT ANGIO/ FEMORAL; Surgeon: Taj Zambrano MD; Location: [facility]; Service: Cardiology; Laterality: N/A; CARDIAC CATHETERIZATION 01/07/2014 N/A PROCEDURE:CARDIAC CATHETERIZATION;COMMENT:Proce dure: LEFT HEART CATHETERIZATION; Surgeon: Taj Zambrano MD; Location: [facility]; Service: Cardiology; Laterality: N/A; Medical History Medical History Date Comments Angina pectoris ([facility] V24) DX :Angina pectoris ([facility]) Hyperlipidemia DX:Hyperlipidemi a Hypertension DX:Hypertension Coronary artery disease DX:Coron [place] artery disease GERD (gastroesophageal reflux disease) DX:GERD (gastroesophageal reflux disease) Cataract DX:Cataract Diabetes mellitus type II, c ontrolled ([facility] V24, [facility] V28) DX:Diabetes mellitus type I I, controlled ([facility]) HL (hearing loss) DX:HL (hearing loss);COMMENT:patient has [...] history exists Influenza Vaccine (Season Ended) 2025 Cholesterol Screening (Lipid Panel) 08/02/2027 08/01/2022, 10/23/2017 [...] age to complete this topic Meningococcal B Vaccine Aged Out No l onger eligible based on patient's age to complete this topic RSV Immunization Patients Under 20 months Aged Out No longer eligible based on patient's age to complete this topic Varicella Vaccines Aged Out No longer eligible based on patient's age to complete this topic Care Teams [facility] Worker Relationship Specialty Start Date End Date Minh Shabazz MD PCP - General Internal Medicine 05/29/17
== END 2024-09-04 08:53 | disposition home or self-care (01) ==
LOC: HO.HOS 08:37
PROVIDERS: PCP Internal Medicine; Visit Provider Orthopaedic Surgery
DX: M17.12 Unilateral primary osteoarthritis, left knee (principal)
CPT/HCPCS: 20610

== ENCOUNTER → 2024-09-04 08:36 | Outpatient (BNVA) | payer MEDICAID, SELFPAY | PROVIDERS: PCP Internal Medicine; Visit Provider Orthopaedic Surgery | DX: M17.12 Unilateral primary osteoarthritis, left knee (principal) | CPT/HCPCS: 20610; J7318 ==